=== PATIENT | male | born 1965 | race Caucasian/White ===

== ENCOUNTER 2021-04-14 21:19 | Inpatient (IN) | payer MEDICAID ==
[~2021-04-14] VITALS: Ht 177.8 cm; Wt 57.2 kg
[2021-04-14] MEDS ORDERED: ACETAMINOPHEN 325MG TABLET PO STA (22:38)
[2021-04-14] MEDS ORDERED: SODIUM CHLORIDE 0.9% 2,300 ML IV ONE (22:45)
[2021-04-14] MEDS ORDERED: CEFTRIAXONE 1 G PREMIX 50 ML IV ONE (22:45)
[2021-04-14 23:07] LABS: BASOPHILS % 0.4 % (0.0-2.0); EOSINOPHILS % 0.3 % (0.0-5.0); HEMATOCRIT. 33.5 % (36.0-48.0); HEMOGLOBIN. 10.7 g/dL (12.0-16.0); LYMPHOCYTES % 13.1 % (20.0-50.0); MEAN PLATELET VOLUME 6.8 fl (7.4-10.4); MONOCYTES % 13.2 % (2.0-8.0); PLATELET 217 x1000/uL (130-400); RED BLOOD CELL COUNT 5.09 mill/uL (4.2-5.4); RED CELL DISTRIBUTION WIDTH 18.1 % (11.6-14.6)
[2021-04-14 23:13] LABS: CHLORIDE 98 mEq/L (98-107)
[2021-04-14 23:16] LABS: PLATELET ESTIMATE NORMAL
[2021-04-14 23:18] LABS: HCG SCREEN NEGATIVE
[2021-04-15] MEDS ORDERED: FOLIC ACID 1 MG, THIAMINE HCL 400 MG, MVI, ADULT NO.1 10 ML in DEXTROSE 5% WATER 1,000 ML IV STA (02:25)
[2021-04-15] MEDS ORDERED: LORAZEPAM 2MG/ML CPJ IV NR (02:30)
[2021-04-15 03:55] LABS: PROTHROMBIN TIME 10.5 sec (9.6-11.0)
[2021-04-15] MEDS ORDERED: CEFTRIAXONE 1 G PREMIX 50 ML IV NR (04:00)
[2021-04-15] MEDS ORDERED: ACETAMINOPHEN 325MG TABLET PO NR (04:00)
[2021-04-15 06:39] LABS: CLARITY URINE CLEAR (CLEAR); COLOR URINE ORANGE (YELLOW); KETONES URINE 1+ (NEGATIVE); LEUKOCYTE ESTERASE URINE NEGATIVE (NEGATIVE); NITRITE URINE NEGATIVE (NEGATIVE); OCCULT BLOOD URINE 1+ (NEGATIVE); PH URINE 5.5 (4.5-8.0); PROTEIN URINE 1+ (NEGATIVE); SPECIFIC GRAVITY URINE 1.027 (1.005-1.030)
[2021-04-15 06:57] LABS: *AMPHETAMINES SCREEN URINE NEGATIVE (NEGATIVE); *BARBITURATES SCREEN URINE NEGATIVE (NEGATIVE); PHENCYCLIDINE URINE SCREEN NEGATIVE (NEGATIVE)
[2021-04-15 06:58] LABS: *BENZODIAZEPINES SCREEN URINE NEGATIVE (NEGATIVE); *COCAINE SCREEN URINE NEGATIVE (NEGATIVE); METHADONE URINE SCREEN NEGATIVE (NEGATIVE)
[2021-04-15 07:04] LABS: CANNABINOID URINE SCREEN NEGATIVE (NEGATIVE); OPIATES URINE SCREEN NEGATIVE (NEGATIVE)
[2021-04-15] MEDS ORDERED: ACETAMINOPHEN 650MG/20.3ML UDC GT PRN (07:45)
[2021-04-15 09:48] LABS: FOLIC ACID (FOLATE) SERUM 18.3 ng/mL (>5.38)
[2021-04-15] MEDS: LORAZEPAM 2MG/ML CPJ IV PRN ×2 (15:15→20:10)
[2021-04-16] MEDS: LORAZEPAM 2MG/ML CPJ IV PRN ×4 (01:05→16:07)
[2021-04-16] MEDS: SODIUM CHLORIDE 0.9% IV SCH ×3 (01:54→22:51)
[2021-04-16] MEDS: THIAMINE HCL IV SCH ×3 (01:54→22:51)
[2021-04-16] MEDS: LIDOCAINE 5% PATCH TOP SCH (01:59)
[2021-04-16] MEDS: TRAMADOL 50MG TABLET PO PRN ×2 (03:06→12:23)
[2021-04-16 04:00] VITALS: BP 125/83
[2021-04-16 10:46] LABS: HEMATOCRIT. 29.8 % (42.0-52.0); HEMOGLOBIN. 9.4 g/dL (14.0-18.0); MEAN CORPUSCULAR VOLUME 66.9 fL (80.0-94.0); MEAN PLATELET VOLUME 6.7 fl (7.4-10.4); PLATELET 177 x1000/uL (130-400); RED BLOOD CELL COUNT 4.46 mill/uL (4.7-6.1)
[2021-04-16 10:53] LABS: CHLORIDE 105 mEq/L (98-107)
[2021-04-16] MEDS ORDERED: GUAIFENESIN-DM 200MG-20MG/10ML UDC PO PRN (11:00)
[2021-04-16 12:00] VITALS: BP 110/71
[2021-04-16 15:56] LABS: NUCLEATED RED BLOOD CELLS 3 /100 WBC; PLATELET ESTIMATE NORMAL
[2021-04-16 16:00] VITALS: BP 123/78
[2021-04-16 20:00] VITALS: BP 142/91
[2021-04-16 20:42] LABS: CREATINE KINASE 385 IU/L (39-308)
[2021-04-16] MEDS: CYANOCOBALAMIN 1000MCG/ML VIAL IM SCH (20:51)
[2021-04-17] VITALS: BP 145/91
[2021-04-17] MEDS: TRAMADOL 50MG TABLET PO PRN ×2 (01:11→14:11)
[2021-04-17 04:00] VITALS: BP 150/95
[2021-04-17] MEDS: SODIUM CHLORIDE 0.9% IV SCH ×2 (06:00→14:44)
[2021-04-17] MEDS: THIAMINE HCL IV SCH ×2 (06:00→14:44)
[2021-04-17 08:00] VITALS: BP 142/97
[2021-04-17] MEDS: LORAZEPAM 2MG/ML CPJ IV PRN ×3 (11:57→21:59)
[2021-04-17 12:00] VITALS: BP 114/72
[2021-04-17 16:00] VITALS: BP 136/86
[2021-04-17 20:00] VITALS: BP 126/81
[2021-04-17] MEDS: CYANOCOBALAMIN 1000MCG/ML VIAL IM SCH (20:08)
[2021-04-17] MEDS: LIDOCAINE 5% PATCH TOP SCH (20:09)
[2021-04-18] VITALS (7 sets, daily range): BP systolic 119–130; BP diastolic 71–85
[2021-04-18 08:05] LABS: CHLORIDE 106 mEq/L (98-107)
[2021-04-18 08:06] LABS: HEMATOCRIT. 30.5 % (42.0-52.0); HEMOGLOBIN. 9.9 g/dL (14.0-18.0); MEAN CORPUSCULAR HEMOGLOBIN 21.6 pg (28.0-32.0); MEAN CORPUSCULAR VOLUME 66.7 fL (80.0-94.0); MEAN PLATELET VOLUME 6.7 fl (7.4-10.4); PLATELET 234 x1000/uL (130-400); RED BLOOD CELL COUNT 4.57 mill/uL (4.7-6.1); RED CELL DISTRIBUTION WIDTH 19.3 % (11.6-14.6)
[2021-04-18] MEDS: TRAMADOL 50MG TABLET PO PRN (10:46)
[2021-04-18] MEDS ORDERED: IPRATROPIUM/ALBUTEROL 0.5-3(2.5)MG/3ML NEB HHN PRN (12:45)
[2021-04-19 09:52] LABS: PLATELET ESTIMATE NORMAL
[2021-04-29] MEDS ORDERED: CYANOCOBALAMIN 1000MCG/ML VIAL IM SCH (09:00)
== END 2021-04-18 20:05 | DRG 135 ==
LOC: EDSEX 21:19 → ER 21:19 → 5WST 04-15 02:26 → ENRESERV 04-16 02:19
PROVIDERS: ADMIT Internal Medicine; ATTEND Internal Medicine
DX: S22.41XA Multiple fractures of ribs, right side, initial encounter for closed fracture (principal); D50.9 Iron deficiency anemia, unspecified; R26.89 Other abnormalities of gait and mobility; F10.10 Alcohol abuse, uncomplicated; R29.6 Repeated falls; S30.1XXA Contusion of abdominal wall, initial encounter; W18.39XA Other fall on same level, initial encounter; Z20.822 Contact with and (suspected) exposure to COVID-19; Z87.891 Personal history of nicotine dependence; Y93.89 Activity, other specified; Y92.89 Other specified places as the place of occurrence of the external cause; Y99.8 Other external cause status
CPT/HCPCS: 36415; 71045; 71250; 74176; 80048; 80076; 82550; 83605; 84145; 84484; 84703; 85025; 93005; 97162; 97166; 97530; 99285; J0696; J2060; J3411; J3420; J3490; J7050; J7070